=== PATIENT | male | born 1950 | race Caucasian/White ===

== ENCOUNTER → 2019-06-07 13:59 | Outpatient (BNVA) | payer MEDICARE, MEDICAID, SELFPAY | PROVIDERS: Family Provider Family Medicine; Visit Provider Otolaryngology | DX: J38.7 Other diseases of larynx (principal); R13.10 Dysphagia, unspecified; R49.0 Dysphonia; J31.0 Chronic rhinitis; J34.2 Deviated nasal septum; J34.3 Hypertrophy of nasal turbinates; F17.210 Nicotine dependence, cigarettes, uncomplicated | CPT/HCPCS: 31575; 99214 ==